=== PATIENT | male | born 2000 | race Caucasian/White ===

== ENCOUNTER 2024-06-10 13:12 | Emergency (ER) | payer OTHER, SELFPAY ==
--- NOTE | ~2024-06-10 | XR_ITS ---
XR shoulder LT min 2V 06/10/2024 13:59 INDICATION: Left shoulder pain PROCEDURE: 4 views left shoulder COMPARISON: No prior studies for comparison. FINDINGS: Fracture, dislocation or subluxation is not identified. The soft tissues appear within norm al limits. No foreign bodies are identified. IMPRESSION: 1: NO ACUTE BONE OR JOINT ABNORMALITY IDENTIFIED. Reviewed, dictated and finalized at location B.
[2024-06-10 13:15] VITALS: BP 133/71; PULSE 78; RESP 18; TEMP 36.6; O2SAT 100
--- NOTE | 2024-06-10 13:37 | ED.GENADULT ---
HPI - General Adult General Chief complaint: Extremity Injury, Upper Stated complaint: left shoulder injury Time Seen by Provider: 06/10/24 13:27 Source: patient Mode of arrival: ambulatory Limitations: no limitations History of Present Illness HPI narrative: this is a 24-year-old male who presents to the ED for chief complaint of left shoulder injury that occurred just prior to arrival. Patient was at work today when a conveyor belt and swung out from that the rock truck. it hit him directly to the left lateral shoulder. Reports that it pushed him about 10 ft back. Reports swelling, redness to the shoulder. Endorses significant difficulty with range of motion. Denies any further sites of pain or injury. Denies head injury or LOC. endorses some tingling to the left pinky but otherwise no numbness or weakness. Related Data Allergies Allergy/AdvReac Type Severity Reaction Status Date / Time cephalexin Allergy Unknown Hives / Verified 06/10/24 13:12 Red Face Review of Systems Review of Systems: All systems as dictated in HPI Exam Narrative: GENERAL: Well-appearing, well-nourished, and in no acute distress. HEAD: Normocephalic, atraumatic. EYES: PERRLA and EOMI. ENT: Nares clear, no rhinorrhea or epistaxis. Mucous membranes moist. Oropharynx without tonsillar hypertrophy exudate or other lesions. NECK: Supple. No adenopathy or masses. CHEST: No respiratory distress. Clear to auscultation. No wheezes rales or rhonchi HEART: Regular rate and rhythm. No murmur heard. Normal peripheral pulses. ABDOMEN: Soft, nontender, nondistended, normal active bowel sounds. MSK: LUE: left shoulder swelling, redness noted. Significant tenderness to palpation along the clavicle and throughout the left shoulder. Significant difficulty with any range of motion of the shoulder. 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 NEURO: Alert and oriented x4. No focal deficits. PSYCH: Normal mood and affect. Course Vital Signs Vital signs: Vital Signs Temperature 97.9 F 06/10/24 13:15 Pulse Rate 78 06/10/24 13:15 Respiratory Rate 18 06/10/24 13:15 Blood Pressure 133/71 06/10/24 13:15 Pulse Oximetry 100 06/10/24 13:15 Oxygen Delivery Room Air 06/10/24 13:15 Temperature 98.7 F 06/10/24 15:46 Pulse Rate 68 06/10/24 15:46 Respiratory Rate 17 06/10/24 15:46 Blood Pressure 137/62 06/10/24 15:46 Pulse Oximetry 99 06/10/24 15:46 Oxygen Delivery Room Air 06/10/24 13:15 Medical Decision Making MDM Narrative Medical decision making narrative: This is a 24-year-old male who presents to the ED for chief complaint of left shoulder injury. Vitals are normal. Exam does show swelling and tenderness to the left shoulder. No deformity left shoulder x-ray showed no acute osseous findings. He still having difficulty with range of motion but pain has greatly improved with pain medications here. Symptoms and presentation most likely consistent with rotator cuff tear versus other soft tissue pathology of the shoulder. Referral for Ortho will be given. Pt will be discharged in stable condition. Return precautions given and supportive measures discussed. Pt is understanding and agreeable with plan for discharge and follow-up with PCP/ortho Vital Signs Vital Signs: Vital Signs Temperature 97.9 F 06/10/24 13:15 Pulse Rate 78 06/10/24 13:15 Respiratory Rate 18 06/10/24 13:15 Blood Pressure 133/71 06/10/24 13:15 Pulse Oximetry 100 06/10/24 13:15 Oxygen Delivery Room Air 06/10/24 13:15 Temperature 98.7 F 06/10/24 15:46 Pulse Rate 68 06/10/24 15:46 Respiratory Rate 17 06/10/24 15:46 Blood Pressure 137/62 06/10/24 15:46 Pulse Oximetry 99 06/10/24 15:46 Oxygen Delivery Room Air 06/10/24 13:15 Discharge Plan Discharge Clinical Impression: Injury of left shoulder Patient Disposition: Home, Self-
[2024-06-10] MEDS: HYDROmorphone HCL INJ (*CRX) 1 MG/ML SYR 0.5 MG IV PUSH (13:44)
[2024-06-10] MEDS: ONDANSETRON INJ 4 MG/2 ML VIAL IV PUSH (13:44)
[2024-06-10 13:57] VITALS: PULSE 79; RESP 12; O2SAT 99
[2024-06-10 14:00] VITALS: PULSE 69; RESP 13; O2SAT 99
[2024-06-10 15:46] VITALS: BP 137/62; PULSE 68; RESP 17; TEMP 37.1; O2SAT 99
== END 2024-06-10 15:25 | disposition home or self-care (01) ==
PROVIDERS: Emergency Provider Physician Assistant; PCP Pediatrics
DX: S49.92XA Unspecified injury of left shoulder and upper arm, initial encounter (principal); W22.8XXA Striking against or struck by other objects, initial encounter; Y99.0 Civilian activity done for income or pay
CPT/HCPCS: 73030; 96374; 96375; 99284; A4565; J1170; J2405